=== PATIENT | female | born 1985 | race Caucasian/White ===

== ENCOUNTER 2017-12-02 12:09 | Outpatient (CLI) | payer OTHER ==
--- NOTE | 2017-12-02 14:00 | RAD ---
RIGHT ELBOW TWO VIEWS: INDICATIONS: Disability evaluation. FINDINGS: No evidence of fracture or other significant osseous abnormality of the right elbow. No joint capsul ar distention. IMPRESSION: No significant osseous abnormality of the right elbow. POS: [facility]
--- NOTE | 2017-12-02 14:00 | RAD ---
LUMBAR SPINE RADIOGRAPH SERIES THREE VIEWS: Indication: Disability evaluation. FINDINGS: Lumbar spine vertebral body heights and disc space heights are preserved. NO acute malalignment. IMPRESSION: No significant osseous abnormality of the lumbar spine. POS: [facility]
== END 2017-12-02 12:10 | disposition home or self-care (01) ==
LOC: NAV RAD 12:09
PROVIDERS: ATTEND Family Medicine
DX: M54.5 Low back pain (principal)
CPT/HCPCS: 72100

== ENCOUNTER 2018-05-24 17:32 | Emergency (ER) | payer MEDICAID ==
[2018-05-24] MEDS ORDERED: Acetaminophen 500 MG TAB ONE (17:53)
--- NOTE | 2018-05-24 19:00 | RAD ---
RIGHT FOOT THREE VIEWS: 05/24/2018 HISTORY: Pain. Injury. COMPARISON: None. FINDINGS: There is enthesophyte formation at the insertion of the Achilles tendon and at the origin of the plan tar aponeurosis. There is an osseous density posterior to the talus, on the lateral view, likely on the basis of an os trigonum. There is dorsal soft tissue swelling involving the midfoot and forefoot . No displaced fracture or evidence of dislocation is seen. IMPRESSION: Dorsal soft tissue swelling with no displaced fracture or evidence of dislocation. If symptoms persi st, follow-up MRI may be beneficial to evaluate for underlying ligamentous injury. POS: [facility]
== END 2018-05-24 18:55 | disposition home or self-care (01) ==
LOC: NAV ERS 17:32
DX: S93.401A Sprain of unspecified ligament of right ankle, initial encounter (principal); S93.601A Unspecified sprain of right foot, initial encounter; F41.9 Anxiety disorder, unspecified; F32.9 Major depressive disorder, single episode, unspecified; F17.210 Nicotine dependence, cigarettes, uncomplicated; Z79.899 Other long term (current) drug therapy; E66.9 Obesity, unspecified; V43.52XA Car driver injured in collision with other type car in traffic accident, initial encounter

== ENCOUNTER 2020-03-29 13:31 | Emergency (ER) | payer MEDICAID ==
[2020-03-29 15:22] LABS: ALT (SGPT) 99 U/L (8-55); AST (SGOT) 155 U/L (5-34); Albumin 4.2 g/dL (3.5-5.0); Alkaline Phosphatase 147 U/L (40-110); Anion Gap 14 mmol/L (10-20); BUN (Urea Nitrogen) 4 mg/dL (7.0-18.7); Bilirubin, Total 0.2 mg/dL (0.2-1.2); Calc. Creatinine Clearance 0 mL/min (70-130); Calcium 8.8 mg/dL (7.8-10.44); Carbon Dioxide 30 mmol/L (22-29); Chloride 104 mmol/L (98-107); Estimated GFR-MDRD 89; Globulin 3.2 g/dL (2.4-3.5); Glucose 109 mg/dL (70-105); Potassium 3.3 mmol/L (3.5-5.1); Protein, Total 7.4 g/dL (6.0-8.3); Sodium 145 mmol/L (136-145)
[2020-03-29 15:23] LABS: #Eosinphils 0.3 thou/uL (0.0-0.7); #Lymphocytes 2.5 thou/uL (1.20-3.40); #Monocytes 0.4 thou/uL (0.11-0.59); #Neutrophils 3.4 thou/uL (1.40-6.50); %Basophils 0.7 % (0.0-1.0); %Eosinophils 4.2 % (0.0-10.0); %Monocytes 5.9 % (0.0-10.0); %Neutrophils 51.2 % (42.0-75.0); Acetaminophen Less than 6.0 mcg/mL (10.0-30.0); Alcohol 203 mg/dL (Less than 10); Mean Corpuscular HGB CONC 30.5 g/dL (32.0-36.0); Mean Corpuscular Hemoglobin 30.6 pg (27.0-31.0); Mean Platelet Volume 6.4 fL (7.4-10.4); Platelet Count 289 thou/uL (130-400); RBC Distribution Width 16.5 % (11.5-14.5); Red Blood Cell (RBC) Count 3.59 mill/uL (4.20-5.40); Salicylate Less than 8.0 mg/dL (15.0-30.0); White Blood Cell (WBC) Count 6.7 thou/uL (4.8-10.8)
[2020-03-29 15:30] LABS: Amphetamine Not Detected (NotDetected); Barbiturates Screen Detected (NotDetected); Benzodiazepine Screen Detected (NotDetected); Cocaine Metabolite Screen Not Detected (NotDetected); Medtox Control Line Valid? VALID (VALID); Methadone Not Detected (NotDetected); Methamphetamine Not Detected (NotDetected); Opiate Screen Detected (NotDetected); Oxycodone Screen Not Detected (NotDetected); Phencyclidine (PCP) Not Detected (NotDetected); THC/Cannabinoid Screen Not Detected (NotDetected); Tricyclic Screen Not Detected (NotDetected)
[2020-03-29] MEDS ORDERED: Mag-Al Plus 1200 MG/1200 MG/120 MG/30 ML UDCUP ONE (20:46)
== END 2020-03-29 22:45 ==
LOC: NAV ERS 13:31
DX: F32.9 Major depressive disorder, single episode, unspecified (principal); F17.210 Nicotine dependence, cigarettes, uncomplicated; F41.9 Anxiety disorder, unspecified
CPT/HCPCS: 36415; 80053; 80306; 80307; 84443; 85025; 93005; 96360; 96361

== ENCOUNTER 2023-01-22 17:56 | Outpatient (CLI) | payer OTHER | END 2023-01-22 17:57 | disposition home or self-care (01) | LOC: NAV RAD 17:56 | PROVIDERS: ATTEND Family Medicine | DX: S39.012A Strain of muscle, fascia and tendon of lower back, initial encounter (principal) | CPT/HCPCS: 72110 ==